=== PATIENT | male | born 1970 | race Caucasian/White ===

== ENCOUNTER 2017-01-11 19:46 | Inpatient (IN) ==
[2017-01-11 20:34] LABS: Basophils % 0.2 %; Eosinophils % 0.2 %; Hematocrit 47.6 % (37.5-50.1); Hemoglobin 15.8 g/dL (12.9-16.9); Immature Granulocytes % 0.2 % (0-4); Lymphocytes # 5.6 K/mcL (0.6-4.6); Lymphocytes % 34.8 %; Mean Corpuscular HGB Conc 33.2 g/dL (31.6-35.5); Mean Corpuscular Hemoglobin 29.2 pg (28.0-33.3); Mean Platelet Volume 11.1 fL (9.4-12.4); Monocytes # 1.4 K/mcL (0.0-1.3); Monocytes % 8.6 %; Platelet Count 223 K/mcL (140-400); Red Blood Count 5.41 M/mcL (4.19-5.50); Red Cell Distribution Width 13.2 % (11.5-14.5)
[2017-01-11 20:48] LABS: Alanine Aminotransferase 34 Units/L (0-55); Albumin/Globulin Ratio 1.2 (1.1-2.2); Alkaline Phosphatase 81 Units/L (38-126); Aspartate Amino Transferase 31 Units/L (5-34); BUN/Creatinine Ratio 18 (6-26); Bilirubin,Direct 0.3 mg/dL (0.0-0.5); Bilirubin,Indirect 0.5 mg/dL (0.0-1.2); Bilirubin,Total 0.8 mg/dL (0.2-1.2); Blood Urea Nitrogen 21 mg/dL (8-26); Calcium 9.4 mg/dL (8.6-10.8); Carbon Dioxide 29 mEq/L (19-29); Chloride 99 mEq/L (98-109); Globulin 3.4 g/dL (2.4-3.5); Glucose 75 mg/dL (70-99); Osmolality,Calculated 290 (280-300); Potassium 4.3 mEq/L (3.5-4.5); Sodium 139 mEq/L (136-145); Total Protein 7.4 g/dL (6.0-8.3); eGFR For African Americans > 60 (> 60); eGFR For Non-African Americans > 60 (> 60)
--- NOTE | 2017-01-11 20:50 | Emergency Department Note ---
Disposition Clinical Impression: Suicidal ideation, Chronic schizophrenia Disposition: Still a Patient Condition: Fair Referrals: NO,PCP [Primary Care Provider] - Forms: ED Satisfaction Letter Time of Disposition: 22:01 Psych HPI - General Chief Complaint: ED Psychiatric Symptoms Stated Complaint: psych Time Seen by Provider: 01/11/17 19:50 Source: patient, EMS Mode of arrival: ambulatory Limitations: no limitations Nursing Notes Reviewed: Yes Vital Signs Reviewed: Yes - History of Present Illness HPI Narrative: Patient presents emergency room by EMS for evaluation of schizophrenia with manic episode. Patient is concerned about a metallic object being placed into his chest that is a radio transmitter controlling his pain and giving out information to other people. No other issues prior to coming according to the patient Pt complaint: suicidal ideation Onset (ago): day(s) Duration: constant History of similar episodes: Yes Improves with: none Worsens with: none Associated symptoms: Reports: denies other symptoms Traumatic symptoms: denies traumatic injury Self harm or harm to others: admits thoughts of self harm, self-inflicted trauma (Patient says that he cut his right hand it is unknown whether this is traumatic or self-induced) - Related Data Allergies Allergy/AdvReac Type Severity Reaction Status Date / Time No Known Allergies Allergy Verified 01/11/17 20:31 All systems ED: reviewed and negative except as stated. Psychiatric: Reports: depression, suicidal thoughts, auditory hallucinations, visual hallucinations Past Medical History - Past Medical History Attestation: Yes The following information was validated with the patient. Source: patient Medical history: Reports: no medical history Psychiatric history: Reports: anxiety, depression, schizophrenia - Social History Smoking Status: Current every day smoker Smokeless Tobacco Status: No Alcohol use: Reports: none Drug use: Reports: opiates Physical Exam - General Limitations: no limitations General appearance: alert, in no apparent distress - Chest Chest inspection: Present: normal inspection, symmetric chest wall rise - Respiratory Respiratory exam: Present: normal lung sounds bilaterally - Cardiovascular Cardiovascular exam: Present: regular rate, normal rhythm, normal heart sounds - Extremities Exam Extremities exam: Present: normal inspection, full ROM - Neurological Exam Neurological exam: Present: alert, oriented X3 - Psychiatric Psychiatric exam: Present: anxious, manic, suicidal ideation Course Course Narrative: Patient seen and examined the time of arrival. See history of present illness. 46-year-old male brought in by EMS for an acute manic episode. Patient says that people are trying to track him with a metal device placed. Patient denies any other trauma or injuries. Has not been on medications. Is a possibility of a self-inflicted injury to the right inky finger. He would not disclose whether or not he actually cut that his hand or cut it himself. Otherwise patient has no other acute medical issues. Medical clearance to be completed. Patient is compliant this time. Chest x-ray is stable showing no acute metallic body at this time. Discussed this with the patient is comfortable with this point. Medical clearance and psychiatric evaluation be completed this time. No other acute medical findings on evaluation - Reevaluation(s) Reevaluation #1: Patient medically cleared at this time. He has not been any issues in the emergency room. Patient will be evaluated by the psychiatric team here. They were contacted at 2200 hrs. No other acute issues at this point. They said it could be an hour or 2 before the patient is evaluated here in the emergency room. Patient be signed out to the nighttime physicians Dr. Aden and Dr. Steve. Detailed review the patient's presentations medical issues will be reviewed. Patient is otherwise in no distress and causing no issues at this time. Time: 22:01 Vital Signs Temperature 98.4 F 01/11/17 19:50 Pulse Rate 86 01/11/17 19:50 Respiratory Rate 18 01/11/17 19:50 Blood Pressure 136/87 01/11/17 19:50 O2 Sat by Pulse Oximetry 97 01/11/17 19:50 Temperature 98.4 F 01/11/17 19:50 Pulse Rate 86 01/11/17 19:50 Respiratory Rate 18 01/11/17 19:50 Blood Pressure 136/87 01/11/17 19:50 O2 Sat by Pulse Oximetry 97 01/11/17 19:50 Oxygen Delivery Oxygen Delivery Room Air Psych - MDM Narrative Medical decision making narrative: Acute manic episode, schizophrenia - Lab Data Lab results reviewed: Yes I reviewed the patient's lab results. Result diagrams: 01/11/17 20:29 01/11/17 20:29 Lab Results 01/11/17 01/11/17 01/11/17 Range/Units 20:29 20:29 21:06 WBC 16.0 H (4.3-11.1) K/mcL RBC 5.41 (4.19-5.50) M/mcL Hgb 15.8 (12.9-16.9) g/dL Hct 47.6 (37.5-50.1) % MCV 88.0 (83.0-100.0) fL MCH 29.2 (28.0-33.3) pg MCHC 33.2 (31.6-35.5) g/dL RDW 13.2 (11.5-14.5) % Plt Count 223 (140-400) K/mcL MPV 11.1 (9.4-12.4) fL Immature Gran % 0.2 (0-4) % Seg Neutrophils % 56.0 % Lymphocytes % 34.8 % Monocytes % 8.6 % Eosinophils % 0.2 % Basophils % 0.2 % Neutrophils # 9.0 H (1.6-8.9) K/mcL Lymphocytes # 5.6 H (0.6-4.6) K/mcL Monocytes # 1.4 H (0.0-1.3) K/mcL Eosinophils # 0.0 (0.0-0.6) K/mcL Basophils # 0.0 (0.0-0.2) K/mcL Sodium 139 (136-145) mEq/L Potassium 4.3 (3.5-4.5) mEq/L Chloride 99 (98-109) mEq/L Carbon Dioxide 29 (19-29) mEq/L BUN 21 (8-26) mg/dL Creatinine 1.18 (0.72-1.25) mg/dL Est GFR ( Amer) > 60 (> 60) Est GFR (Non-Af Amer) > 60 (> 60) BUN/Creatinine Ratio 18 (6-26) Glucose 75 (70-99) mg/dL Calculated Osmolality 290 (280-300) Calcium 9.4 (8.6-10.8) mg/dL Total Bilirubin 0.8 (0.2-1.2) mg/dL Direct Bilirubin 0.3 (0.0-0.5) mg/dL Indirect Bilirubin 0.5 (0.0-1.2) mg/dL AST 31 (5-34) Units/L ALT 34 (0-55) Units/L Alkaline Phosphatase 81 (38-126) Units/L Serum Total Protein 7.4 (6.0-8.3) g/dL Albumin 4.0 (3.5-5.0) g/dL Globulin 3.4 (2.4-3.5) g/dL Albumin/Globulin Ratio 1.2 (1.1-2.2) Urine Color Yellow (Yellow) Urine Clarity Clear (Clear) Urine pH 6.0 (5.0-8.0) pH Units Ur Specific [place] 1.014 (1.010-1.025) Urine Protein Negative (Neg-Trace) mg/dL Urine Glucose (UA) Normal (Normal) mg/dL Urine Ketones Negative (Negative) mg/dL Urine Blood Negative (Negative) Urine Nitrite Negative (Negative) Urine Bilirubin Negative (Negative) Urine Urobilinogen Normal (Normal) mg/dL Ur Leukocyte Esterase Negative (Negative) Urine Opiates Screen (Wesrzw=152) ng/mL Ur Barbiturates Screen (Kqtigg=106) ng/mL Ur Phencyclidine Scrn (Cutoff=25) ng/mL Ur Amphetamines Screen (Hznzqn=3787) ng/mL U Benzodiazepines Scrn (Lhymzl=638) ng/mL Urine Cocaine Screen (Cutoff= 300) ng/mL U Marijuana (THC) Screen (Cutoff = 50) ng/mL 01/11/17 Range/Units 21:06 WBC (4.3-11.1) K/mcL RBC (4.19-5.50) M/mcL Hgb (12.9-16.9) g/dL Hct (37.5-50.1) % MCV (83.0-100.0) fL MCH (28.0-33.3) pg MCHC (31.6-35.5) g/dL RDW (11.5-14.5) % Plt Count (140-400) K/mcL MPV (9.4-12.4) fL Immature Gran % (0-4) % Seg Neutrophils % % Lymphocytes % % Monocytes % % Eosinophils % % Basophils % % Neutrophils # (1.6-8.9) K/mcL Lymphocytes # (0.6-4.6) K/mcL Monocytes # (0.0-1.3) K/mcL Eosinophils # (0.0-0.6) K/mcL Basophils # (0.0-0.2) K/mcL Sodium (136-145) mEq/L Potassium (3.5-4.5) mEq/L Chloride (98-109) mEq/L Carbon Dioxide (19-29) mEq/L BUN (8-26) mg/dL Creatinine (0.72-1.25) mg/dL Est GFR ( Amer) (> 60) Est GFR (Non-Af Amer) (> 60) BUN/Creatinine Ratio (6-26) Glucose (70-99) mg/dL Calculated Osmolality (280-300) Calcium (8.6-10.8) mg/dL Total Bilirubin (0.2-1.2) mg/dL Direct Bilirubin (0.0-0.5) mg/dL Indirect Bilirubin (0.0-1.2) mg/dL AST (5-34) Units/L ALT (0-55) Units/L Alkaline Phosphatase (38-126) Units/L Serum Total Protein (6.0-8.3) g/dL Albumin (3.5-5.0) g/dL Globulin (2.4-3.5) g/dL Albumin/Globulin Ratio (1.1-2.2) Urine Color (Yellow) Urine Clarity (Clear) Urine pH (5.0-8.0) pH Units Ur Specific [place] (1.010-1.025) Urine Protein (Neg-Trace) mg/dL Urine Glucose (UA) (Normal) mg/dL Urine Ketones (Negative) mg/dL Urine Blood (Negative) Urine Nitrite (Negative) Urine Bilirubin (Negative) Urine Urobilinogen (Normal) mg/dL Ur Leukocyte Esterase (Negative) Urine Opiates Screen Negative (Bnwxwo=584) ng/mL Ur Barbiturates Screen Negative (Awlujz=885) ng/mL Ur Phencyclidine Scrn Negative (Cutoff=25) ng/mL Ur Amphetamines Screen Positive H (Lcknya=6664) ng/mL U Benzodiazepines Scrn Positive H (Yftznt=550) ng/mL Urine Cocaine Screen Negative (Cutoff= 300) ng/mL U Marijuana (THC) Screen Negative (Cutoff = 50) ng/mL Psychiatric Medical Clearance - Medical Clearance Checklist Does the patient have a NEW psychiatric condition?: No Any abnormalities indicating possible medical illness?: No Any history of medical issues?: No Medical History: No Social History Section defined Any abnormal vital signs prior to transfer?: No Current Vitals: Last Vital Signs Temp 98.4 F 01/11/17 19:50 Pulse 86 01/11/17 19:50 Resp 18 04/08/17 19:50 BP 136/87 01/11/17 19:50 Pulse Ox 97 01/11/17 19:50 Is the patient intoxicated or cognitively impaired?: No Psychiatric Lab Panel: Drug Levels and Toxicity 01/11/17 21:06 Urine Opiates Screen Negative Ur Barbiturates Screen Negative Ur Phencyclidine Scrn Negative Ur Amphetamines Screen Positive H U Benzodiazepines Scrn Positive H Urine Cocaine Screen Negative U Marijuana (THC) Screen Negative Any abnormalities on the physical exam?: No Any abnormal labs?: No Abnormal Labs: Abnormal lab results WBC 16.0 K/mcL (4.3-11.1) H 01/11/17 20:29 Neutrophils # 9.0 K/mcL (1.6-8.9) H 01/11/17 20:29 Lymphocytes # 5.6 K/mcL (0.6-4.6) H 01/11/17 20:29 Monocytes # 1.4 K/mcL (0.0-1.3) H 01/11/17 20:29 Ur Amphetamines Screen Positive ng/mL (Aadjxe=2899) H 01/11/17 21:06 U Benzodiazepines Scrn Positive ng/mL (Gmkzyb=963) H 01/11/17 21:06 Does the patient require durable medical equiptment?: No Is the patient ambulatory?: Yes Is the patient a fall risk?: No Has the patient been medically cleared?: Yes Any acute medical condition require Tx prior to transfer?: No Statement of Medical Clearance: I have evaluated the patient, reviewed diagnostic information, and certify that the patient's medical condition is sufficiently stable that transfer to the psychiatric unit does not pose a significant risk of deterioration. Attestation Statement - Attestation Attestation: I examined this patient and my medical decision-making was reviewed with the [employer]ER/PA/Advanced Practice Nurse/Resident Physician. I agree with the documented findings, disposition and treatment plan as described except to the extent set forth below. Patient presents to the emergency department with a chief complaint of paranoia. Patient went in to the police station [facility] requesting help. Patient insisted several years ago his had a device implanted in his abdomen during his cholecystectomy. He states he is a low fluid frequency transmitter. States he thinks she is spying on him. Thinks that she needs communicate with us transmitter. Quintana he is in no acute distress with clear lungs and heart regular rate and rhythm. Plan. Patient with auditory hallucinations. Medical clearance and psych eval.
[2017-01-11 21:17] LABS: Bilirubin,Urine Negative (Negative); Blood,Urine Negative (Negative); Clarity,Urine Clear (Clear); Color,Urine Yellow (Yellow); Glucose,Urine (UA) Normal (Normal); Ketones,Urine Negative (Negative); Leukocyte Esterase,Urine Negative (Negative); Nitrite,Urine Negative (Negative); Protein,Urine Negative (Neg-Trace); Specific Gravity,Urine 1.014 (1.010-1.025); Urobilinogen,Urine Normal (Normal)
[2017-01-11 21:23] LABS: Amphetamine Screen,Urine Positive ng/mL (Cutoff=1000); Barbiturate Screen,Urine Negative ng/mL (Cutoff=200); Benzodiazepines Screen,Urine Positive ng/mL (Cutoff=200); Cannabinoid Screen,Urine Negative ng/mL (Cutoff = 50); Cocaine Screen,Urine Negative ng/mL (Cutoff= 300); Opiate Screen,Urine Negative ng/mL (Cutoff=300); Phencyclidine Screen,Urine Negative ng/mL (Cutoff=25)
[2017-01-11 23:05] LABS: Acetaminophen < 1.0 mcg/mL (10-30); Ethanol < 10 mg/dL (0-10); Salicylate < 5.0 mg/dL (15-30)
[2017-01-12] MEDS ORDERED: traZODone 50 MG TABLET PO PRN (00:41)
[2017-01-12] MEDS ORDERED: Acetaminophen 325 MG TABLET PO PRN (00:41)
[2017-01-12] MEDS ORDERED: Haloperidol Lactate 5 MG/ML VIAL IM PRN (00:41)
[2017-01-12] MEDS ORDERED: Mag Hydrox/Al Hydrox/Simeth 30 ML UDC PO PRN (00:41)
[2017-01-12] MEDS ORDERED: MOM Conc 10 ML UD.LIQ PO PRN (00:41)
[2017-01-12] MEDS ORDERED: *HR* LORazepam 2 MG/ML VIAL IM PRN (00:41)
[2017-01-12] MEDS ORDERED: hydrOXYzine pamoate 25 MG CAPSULE PO PRN (00:41)
[2017-01-12] MEDS ORDERED: *HR* LORazepam 1 MG TABLET PO PRN (00:41)
[2017-01-12] MEDS: Ibuprofen 400 MG TABLET PO PRN (01:29)
[2017-01-12] MEDS: Nicotine 21 MG PATCH.TD24 TD SCH (08:39)
--- NOTE | 2017-01-12 10:25 | Psychiatry History & Physical ---
Date of Encounter: 01/12/17 Time of Encounter: 10:30 History of Present Illness Patient Stated Chief Complaint: Paranoid delusions Medicare Admission Attestation: For traditional Medicare patients the provided hospital inpatient services are reasonable and necessary and in the case of services not specified as inpatient -only under 42 CFR 419.22 (n), that they are appropriately provided as inpatient services in accordance 42 CFR 412.3. For Critical Access Hospital the patient may reasonably be expected to be discharged or transferred to a hospital within 96 hours after admission to the Critical Access Hospital. Admitted From: Emergency Dept History of Present Illness: Mr. St is a 46 year old male admitted from the emergency room for evaluation of paranoid delusions and manic episode. Patient was brought in by police to evaluate his mental status, apparently the patient went to the police station and reported that he is being tracked through a device placed in his abdomen and people are able to track him down. Patient believes that this device was placed when he had his global gallbladder surgery in 2002. Patient has no previous psychiatric treatment records or evaluations in our system and is not taking any medication prior to admission. Patient is homeless because his girlfriend kicked him out. 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 Tox screen in the ER was positive for amphetamine and benzodiazepine. Past Med Surg Social Fam HX - Past Medical History Medical history: hyperlipidemia, hypertension - Past Psychiatric History Psychiatric history: Reports: no psych history Family psychiatric history: Unknown Family History of Suicide: Unknown - Past Surgical History Surgical History: appendectomy, cholecystectomy, sinus surgery - Social History Smoking Status: Current every day smoker Smokeless Tobacco Status: No Alcohol use: none Drug use: opiates, other Medications & Allergies Allergies No Known Allergies Allergy (Verified 01/11/17 20:31) Review of Systems Psychiatric: Reports: other (Paranoid delusions) Mental Status Exam Patient orientation: Yes Person, Yes Time, Yes Place Level of alertness: Alert Patient appearance: Appropriate, Unkempt, Disheveled, Obese Behavior: calm, cooperative, guarded, suspicious Psychomotor activity: Normal Eye contact: Minimal Contact Mood description: Anxious, Labile Affect description: constricted, anxious Speech pattern: Normal rate, Normal rhythm, Normal tone, Disorganized Speech volume: Normal Thought process: Loose Associations, Tangential, Flight of Ideas, Disorganized Thought content: No Suicidal ideation, No Homicidal ideation, Yes Overt delusions, Yes Ideas of reference, Yes Preoccupation, Yes Paranoid delusion, Yes Somatic delusion, Yes Obsessive thoughts Perceptual disturbances: No Auditory hallucinations, No Visual hallucinations Attention span: Capable of Focused Attention Memory description: Grossly Intact Patient reliability: Questionable Historian Intelligence estimate: Average Judgment: Limited Insight: Partial Results - Vital Signs Vital signs: Temp Pulse Resp BP Pulse Ox 98.7 F 79 18 108/74 97 01/12/17 08:52 01/12/17 08:52 01/12/17 08:52 01/12/17 08:52 01/11/17 19:50 - Labs Labs: Laboratory Last Values WBC 16.0 K/mcL (4.3-11.1) H 01/11/17 20:29 RBC 5.41 M/mcL (4.19-5.50) 01/11/17 20:29 Hgb 15.8 g/dL (12.9-16.9) 01/11/17 20:29 Hct 47.6 % (37.5-50.1) 01/11/17 20:29 MCV 88.0 fL (83.0-100.0) 01/11/17 20:29 MCH 29.2 pg (28.0-33.3) 01/11/17 20: MCHC 33.2 g/dL (31.6-35.5) 01/11/17 20:29 RDW 13.2 % (11.5-14.5) 01/11/17 20:29 Plt Count 223 K/mcL (140-400) 01/11/17 20:29 MPV 11.1 fL (9.4-12.4) 01/11/17 20:29 Immature Gran % 0.2 % (0-4) 01/11/17 20:29 Seg Neutrophils % 56.0 % 01/11/17 20:29 Lymphocytes % 34.8 % 01/11/17 20:29 Monocytes % 8.6 % 01/11/17 20:29 Eosinophils % 0.2 % 01/11/17 20: Basophils % 0.2 % 01/11/17 20:29 Neutrophils # 9.0 K/mcL (1.6-8.9) H 01/11/17 20:29 Lymphocytes # 5.6 K/mcL (0.6-4.6) H 01/11/17 20:29 Monocytes # 1.4 K/mcL (0.0-1.3) H 01/11/17 20:29 Eosinophils # 0.0 K/mcL (0.0-0.6) 01/11/17 20:29 Basophils # 0.0 K/mcL (0.0-0.2) 01/11/17 20:29 Sodium 139 mEq/L (136-145) 01/11/17 20:29 Potassium 4.3 mEq/L (3.5-4.5) 01/11/17 20:29 Chloride 99 mEq/L (98-109) 01/11/17 20:29 Carbon Dioxide 29 mEq/L (19-29) 01/11/17 20:29 BUN 21 mg/dL (8-26) 01/11/17 20: Creatinine 1.18 mg/dL (0.72-1.25) 01/11/17 20:29 Est GFR ( Amer) > 60 (> 60) 01/11/17 20:29 Est GFR (Non-Af Amer) > 60 (> 60) 01/11/17 20:29 BUN/Creatinine Ratio 18 (6-26) 01/11/17 20:29 Glucose 75 mg/dL (70-99) 01/11/17 20:29 Calculated Osmolality 290 (280-300) 01/11/17 20:29 Calcium 9.4 mg/dL (8.6-10.8) 01/11/17 20:29 Total Bilirubin 0.8 mg/dL (0.2-1.2) 01/11/17 20:29 Direct Bilirubin 0.3 mg/dL (0.0-0.5) 01/11/17 20:29 Indirect Bilirubin 0.5 mg/dL (0.0-1.2) 01/11/17 20:29 AST 31 Units/L (5-34) 01/11/17 20: ALT 34 Units/L (0-55) 01/11/17 20:29 Alkaline Phosphatase 81 Units/L (38-126) 01/11/17 20:29 Serum Total Protein 7.4 g/dL (6.0-8.3) 01/11/17 20:29 Albumin 4.0 g/dL (3.5-5.0) 01/11/17 20:29 Globulin 3.4 g/dL (2.4-3.5) 01/11/17 20:29 Albumin/Globulin Ratio 1.2 (1.1-2.2) 01/11/17 20:29 Urine Color Yellow (Yellow) 01/11/17 21:06 Urine Clarity Clear (Clear) 01/11/17 21:06 Urine pH 6.0 pH Units (5.0-8.0) 01/11/17 21:06 Ur Specific [place] 1.014 (1.010-1.025) 01/11/17 21:06 Urine Protein Negative mg/dL (Neg-Trace) 01/11/17 21:06 Urine Glucose (UA) Normal mg/dL (Normal) 01/11/17 21:06 Urine Ketones Negative mg/dL (Negative) 01/11/17 21:06 Urine Blood Negative (Negative) 01/11/17 21:06 Urine Nitrite Negative (Negative) 01/11/17 21:06 Urine Bilirubin Negative (Negative) 01/11/17 21:06 Urine Urobilinogen Normal mg/dL (Normal) 01/11/17 21:06 Ur Leukocyte Esterase Negative (Negative) 01/11/17 21:06 Salicylates < 5.0 mg/dL (15-30) L 01/11/17 20:29 Urine Opiates Screen Negative ng/mL (Ekedkf=122) 01/11/17 21:06 Acetaminophen < 1.0 mcg/mL (10-30) L 01/11/17 20:29 Ur Barbiturates Screen Negative ng/mL (Pdeebo=118) 01/11/17 21:06 Ur Phencyclidine Scrn Negative ng/mL (Cutoff=25) 01/11/17 21:06 Ur Amphetamines Screen Positive ng/mL (Linthq=9981) H 01/11/17 21:06 U Benzodiazepines Scrn Positive ng/mL (Agtquy=412) H 01/11/17 21:06 Urine Cocaine Screen Negative ng/mL (Cutoff= 300) 01/11/17 21:06 U Marijuana (THC) Screen Negative ng/mL (Cutoff = 50) 01/11/17 21:06 Ethyl Alcohol < 10 mg/dL (0-10) 01/11/17 20:29 Assessment and Plan (1) Substance-induced psychotic disorder with delusions Current visit: Yes Status: Acute Plan: Admit inpatient for safety and stabilization, Close observation, Suicide Precautions per unit protocol, Encourage participation in unit milieu, Group Therapy, Monitor sleep, Monitor appetite Additional Plan: The Zyprexa 10 mg twice a day. Benefits and side effects were discussed patient is agreeable to start treatment will monitor Risks, benefits, side effects, alternatives discussed w/pt: Yes Patient agreeable to treatment: Yes
[2017-01-12] MEDS: OLANZapine 10 MG TAB.RAPDIS PO SCH ×2 (11:24→20:54)
[2017-01-13] MEDS: OLANZapine 10 MG TAB.RAPDIS PO SCH ×2 (09:18→21:51)
[2017-01-13] MEDS: Nicotine 21 MG PATCH.TD24 TD SCH (09:18)
--- NOTE | 2017-01-13 19:19 | Psychiatry Progress Note ---
Date of Encounter: 01/13/17 Time of Encounter: 19:15 Subjective Interval history: Pt reports he believes that everybody was after him. Does not know if the Andra Alerts are still being sent to him because he has not gone outside the hospital. He denies s/e to Zyprexa. Started sleeping better with meds. Feeling a bit calmer. Review of Systems Psychiatric: Reports: other (Paranoid delusions) Objective: Exam Patient orientation: Yes Person, Yes Time, Yes Place Level of alertness: Alert Patient appearance: Appropriate, Unkempt, Disheveled, Obese Behavior: calm, cooperative, guarded, suspicious Psychomotor activity: Normal Eye contact: Minimal Contact Mood description: Euthymic/stable Affect description: constricted, anxious Speech pattern: Normal rate, Normal rhythm, Normal tone, Disorganized Speech volume: Normal Thought process: Loose Associations, Tangential, Flight of Ideas, Disorganized Thought content: No Suicidal ideation, No Homicidal ideation, Yes Overt delusions, Yes Ideas of reference, Yes Preoccupation, Yes Paranoid delusion, Yes Somatic delusion, Yes Obsessive thoughts Perceptual disturbances: No Auditory hallucinations, No Visual hallucinations Judgment: Limited Insight: Partial Results - Vital Signs Vital Signs: Temp Pulse Resp BP Pulse Ox 98.2 F 96 16 123/85 97 01/13/17 09:00 01/13/17 09:00 01/13/17 09:00 01/13/17 09:00 01/11/17 19:50 Assessment and Plan (1) Chronic schizophrenia Current visit: Yes Status: Acute Plan: Continue hospitalization, Close observation, Encourage participation in unit milieu, Group Therapy, Monitor sleep, Monitor appetite, Secure weapons, Family/Supportive other meeting Consult Discharge Plan - Plan Additional Instructions: Will continue to monitor for softening of delusions. Referrals: NO,PCP [Primary Care Provider] -
[2017-01-13] MEDS: Neosporin OINT 15 GM TUBE TP SCH (21:51)
[2017-01-13] MEDS: Ibuprofen 400 MG TABLET PO PRN (21:52)
[2017-01-14] MEDS: Nicotine 21 MG PATCH.TD24 TD SCH (08:32)
[2017-01-14] MEDS: OLANZapine 10 MG TAB.RAPDIS PO SCH ×2 (08:33→21:26)
[2017-01-14] MEDS: Neosporin OINT 15 GM TUBE TP SCH ×4 (08:51→21:26)
--- NOTE | 2017-01-14 17:31 | Psychiatry Progress Note ---
Date of Encounter: 01/14/17 Time of Encounter: 17:20 Subjective Interval history: Pt reports he was able t sleep last night. Still thinking his cell phone is sending him frequent alarms Worried that everyone knows his location through the phone. Attending groups . Review of Systems Psychiatric: Reports: anxiety, other (Paranoid delusions) Objective: Exam Patient orientation: Yes Person, Yes Time, Yes Place Level of alertness: Alert Patient appearance: Appropriate, Unkempt, Disheveled, Obese Behavior: calm, cooperative, guarded, suspicious Psychomotor activity: Normal Eye contact: Minimal Contact Mood description: Euthymic/stable Affect description: constricted, anxious Speech pattern: Normal rate, Normal rhythm, Normal tone, Disorganized Speech volume: Normal Thought process: Loose Associations, Tangential, Flight of Ideas, Disorganized Thought content: No Suicidal ideation, No Homicidal ideation, Yes Overt delusions, Yes Ideas of reference, Yes Preoccupation, Yes Paranoid delusion, Yes Somatic delusion, Yes Obsessive thoughts Perceptual disturbances: No Auditory hallucinations, No Visual hallucinations Judgment: Limited Insight: Partial Results - Vital Signs Vital Signs: Temp Pulse Resp BP Pulse Ox 97.7 F 61 16 122/77 97 01/14/17 08:34 01/14/17 08:34 01/14/17 08:34 01/14/17 08:34 01/11/17 19:50 Assessment and Plan (1) Chronic schizophrenia Current visit: Yes Status: Acute Plan: Continue hospitalization, Close observation, Encourage participation in unit milieu, Group Therapy, Monitor sleep, Monitor appetite, Secure weapons, Family/Supportive other meeting Risks, benefits, side effects, alternatives discussed w/pt: Yes (Cont Zyprexa) Patient agreeable to treatment: Yes Consult Discharge Plan - Plan Additional Instructions: Will continue to monitor for softening of delusions. Referrals: NO,PCP [Primary Care Provider] -
[2017-01-14] MEDS: Ibuprofen 400 MG TABLET PO PRN (21:26)
[2017-01-15] MEDS: Nicotine 21 MG PATCH.TD24 TD SCH (08:26)
[2017-01-15] MEDS: Neosporin OINT 15 GM TUBE TP SCH ×4 (08:27→20:05)
[2017-01-15] MEDS: OLANZapine 10 MG TAB.RAPDIS PO SCH ×2 (08:27→20:05)
--- NOTE | 2017-01-15 13:07 | Psychiatry Progress Note ---
Date of Encounter: 01/15/17 Time of Encounter: 13:05 Subjective Interval history: Pt reports he is ready to get out of here. He slept OK and seems less preoccupied with the delusions about something planted in him receiving frequent corinna alerts. He is now thinking it may have been his cell phone instead. He has no understanding that it was all his unwarranted imagination. Denies s/e from meds. Review of Systems Psychiatric: Reports: anxiety, other (Paranoid delusions beginning to sofen. Very poor insight.) Objective: Exam Patient orientation: Yes Person, Yes Time, Yes Place, Yes Circumstance Level of alertness: Alert Patient appearance: Appropriate, Unkempt, Disheveled, Obese Behavior: calm, cooperative, guarded, suspicious Psychomotor activity: Normal Eye contact: Minimal Contact Mood description: Euthymic/stable Affect description: constricted, anxious Speech pattern: Normal rate, Normal rhythm, Normal tone, Disorganized Speech volume: Normal Thought process: Loose Associations, Tangential, Flight of Ideas, Disorganized Thought content: No Suicidal ideation, No Homicidal ideation, Yes Overt delusions, Yes Ideas of reference, Yes Preoccupation, Yes Paranoid delusion, Yes Somatic delusion, Yes Obsessive thoughts Perceptual disturbances: No Auditory hallucinations, No Visual hallucinations Judgment: Limited Insight: Partial Results - Vital Signs Vital Signs: Temp Pulse Resp BP Pulse Ox 97.9 F 73 16 134/83 97 01/15/17 08:21 01/15/17 08:21 01/15/17 08:21 01/15/17 08:21 01/11/17 19:50 Assessment and Plan (1) Chronic schizophrenia Current visit: Yes Status: Acute Plan: Continue hospitalization, Close observation, Encourage participation in unit milieu, Group Therapy, Monitor sleep, Monitor appetite, Secure weapons, Family/Supportive other meeting Risks, benefits, side effects, alternatives discussed w/pt: Yes (Cont Zyprexa) Patient agreeable to treatment: Yes Consult Discharge Plan - Plan Referrals: [facility] [Outside] - 03/13/17 9:00 am (The above appointment Dr. Lauren Trent. This appointment is to establish you with a primary care provider. Please arrive 10-15 minutes early to complete the check-in process. You will receive a new patient packet in the mail. Please complete that packet and bring it with you to this appointment. If you are unable to complete your new patient packet, please arrive 30 minutes early to your first appointment to complete this packet in the office. Please also bring your insurance card or HCAP award letter, photo ID, and all medications in their original bottles to this appointment. If you are unable to keep this appointment, 24 hour business notice of cancellation is expected. If you miss your new patient appointment, you cannot be re-scheduled in this practice. ) [facility] [Outside] - 03/28/17 9:00 am (The above appointment is with Lauren Mendoza, psychiatric prescriber. Please arrive 15 minutes early to complete paperwork. Please bring your insurance card, photo ID and medications in their original bottles. If you do not have insurance, bring proof of income to apply for the sliding fee scale. If you are unable to keep this appointment, 24 hour business notice of cancellation is expected. )
[2017-01-16] MEDS: Nicotine 21 MG PATCH.TD24 TD SCH (08:25)
[2017-01-16] MEDS: OLANZapine 10 MG TAB.RAPDIS PO SCH ×2 (08:25→20:33)
[2017-01-16] MEDS: Neosporin OINT 15 GM TUBE TP SCH ×4 (08:26→20:33)
[2017-01-16 09:06] LABS: Alanine Aminotransferase 46 Units/L (0-55); Albumin 3.5 g/dL (3.5-5.0); Albumin/Globulin Ratio 1.1 (1.1-2.2); Alkaline Phosphatase 68 Units/L (38-126); Aspartate Amino Transferase 22 Units/L (5-34); BUN/Creatinine Ratio 15 (6-26); Bilirubin,Total 0.4 mg/dL (0.2-1.2); Blood Urea Nitrogen 13 mg/dL (8-26); Calcium 9.7 mg/dL (8.6-10.8); Carbon Dioxide 22 mEq/L (19-29); Chloride 105 mEq/L (98-109); Globulin 3.3 g/dL (2.4-3.5); Glucose 169 mg/dL (70-99); Osmolality,Calculated 294 (280-300); Potassium 4.5 mEq/L (3.5-4.5); Sodium 140 mEq/L (136-145); Total Protein 6.8 g/dL (6.0-8.3); eGFR For African Americans > 60 (> 60); eGFR For Non-African Americans > 60 (> 60)
--- NOTE | 2017-01-16 16:02 | Psychiatry Progress Note ---
Date of Encounter: 01/16/17 Time of Encounter: 16:00 Subjective Interval history: Pt reports fair sleep last night. He is eager to leave and reports no voices or paranoia. His paranoid delusions still persist but softened at this time. He is certainly not as preoccupied with the delusions as before. Review of Systems Psychiatric: Reports: anxiety, other (Paranoid delusions beginning to sofen. Very poor insight.) Objective: Exam Patient orientation: Yes Person, Yes Time, Yes Place, Yes Circumstance Level of alertness: Alert Patient appearance: Appropriate, Unkempt, Disheveled, Obese Behavior: calm, cooperative, guarded, suspicious Psychomotor activity: Normal Eye contact: Minimal Contact Mood description: Euthymic/stable Affect description: constricted, anxious Speech pattern: Normal rate, Normal rhythm, Normal tone, Disorganized Speech volume: Normal Thought process: Loose Associations, Tangential, Flight of Ideas, Disorganized Thought content: No Suicidal ideation, No Homicidal ideation, Yes Overt delusions, Yes Ideas of reference, Yes Preoccupation, Yes Paranoid delusion, Yes Somatic delusion, Yes Obsessive thoughts Perceptual disturbances: No Auditory hallucinations, No Visual hallucinations Judgment: Limited Insight: Partial Results - Vital Signs Vital Signs: Temp Pulse Resp BP Pulse Ox 98 F 66 16 111/71 97 01/16/17 09:00 01/16/17 09:00 01/16/17 09:00 01/16/17 09:00 01/11/17 19:50 - Labs Labs: Laboratory Results - last 24 hr 01/16/17 08:30 Sodium 140 Potassium 4.5 Chloride 105 Carbon Dioxide 22 BUN 13 Creatinine 0.87 Est GFR ( Amer) > 60 Est GFR (Non-Af Amer) > 60 BUN/Creatinine Ratio 15 Glucose 169 H Calculated Osmolality 294 Calcium 9.7 Total Bilirubin 0.4 AST 22 ALT 46 Alkaline Phosphatase 68 Serum Total Protein 6.8 Albumin 3.5 Globulin 3.3 Albumin/Globulin Ratio 1.1 Assessment and Plan (1) Chronic schizophrenia Current visit: Yes Status: Acute Plan: Continue hospitalization, Close observation, Encourage participation in unit milieu, Group Therapy, Monitor sleep, Monitor appetite, Secure weapons, Family/Supportive other meeting Risks, benefits, side effects, alternatives discussed w/pt: Yes (Cont Zyprexa) Patient agreeable to treatment: Yes Consult Discharge Plan - Plan Referrals: [facility] [Outside] - 03/13/17 9:00 am (The above appointment Dr. Lauren Trent. This appointment is to establish you with a primary care provider. Please arrive 10-15 minutes early to complete the check-in process. You will receive a new patient packet in the mail. Please complete that packet and bring it with you to this appointment. If you are unable to complete your new patient packet, please arrive 30 minutes early to your first appointment to complete this packet in the office. Please also bring your insurance card or HCAP award letter, photo ID, and all medications in their original bottles to this appointment. If you are unable to keep this appointment, 24 hour business notice of cancellation is expected. If you miss your new patient appointment, you cannot be re-scheduled in this practice. ) [facility] - 03/28/17 9:00 am (The above appointment is with Lauren Mendoza, psychiatric prescriber. Please arrive 15 minutes early to complete paperwork. Please bring your insurance card, photo ID and medications in their original bottles. If you do not have insurance, bring proof of income to apply for the sliding fee scale. If you are unable to keep this appointment, 24 hour business notice of cancellation is expected. ) [facility] [Outside] - 01/28/17 2:00 pm (The above appointment is with Laya Barbosa. When you come to your first appointment, you will have an orientation to the agency and you will meet with a counselor. Please bring the following with you to your first visit to the clinic: 1) proof of household income (two consecutive pay stubs, social security award letter, bank statement, statement letter from [employer], child support statement, IRS 1040 or W2 form, or a statement from the person who financially supports you stating they help provide for your basic needs), 2) proof of residency (drivers license , a piece of mail showing your address, a statement from person you live with verifying you live at their address), 3) your social security card, 4) photo ID , 5) your insurance card (if you have commercial insurance you must call to obtain a prior authorization number before you arrive to your first appointment ) and 6) if you do not have insurance but have applied for Medicaid, please bring verification you have applied.)
[2017-01-17] MEDS: OLANZapine 10 MG TAB.RAPDIS PO SCH (08:44)
[2017-01-17] MEDS: Neosporin OINT 15 GM TUBE TP SCH ×2 (08:44→12:14)
[2017-01-17] MEDS: Nicotine 21 MG PATCH.TD24 TD SCH (08:44)
[2017-01-17 08:56] VITALS: BP 125/72
--- NOTE | 2017-01-17 12:12 | Discharge Summary ---
Date of Encounter: 01/17/17 Time of Encounter: 12:00 Diagnosis - Discharge Diagnosis (1) Chronic schizophrenia Status: Acute Medications - Discharge Medications Prescriptions: Nicotine Patch [Nicoderm] 21 mg TD DAILY #14 patch.td24 OLANZapine [Zyprexa Zydis] 10 mg PO BID #14 tab.rapdis TraZODone 50 mg PO HS PRN #14 tablet PRN Reason: Insomnia Nicotine Patch [Nicoderm] 21 mg TD DAILY #14 patch.td24 01/17/17 [Rx] OLANZapine [Zyprexa Zydis] 10 mg PO BID #14 tab.rapdis 01/17/17 [Rx] TraZODone 50 mg PO HS PRN #14 tablet 01/17/17 [Rx] Allergies No Known Allergies Allergy (Verified 01/11/17 20:31) Results Procedures and tests throughout hospitalization: Completed Lab Orders Category Date Time Status Chem 13 [Comprehensive Metabolic Panel] Routine Lab 01/16/17 08:30 Completed Provider Date of admission: 01/13/17 00:00 Primary care physician: PCP NO Consults: NONE Discharging clinician: Lan Jurado Assessment and Plan - Patient/Caregiver Discharge Instructions Activity: resume usual activities as tolerated Diet: regular diet - Follow up Plan Follow up with: [facility] [Outside] - 03/13/17 9:00 am (The above appointment Dr. Lauren Trent. This appointment is to establish you with a primary care provider. Please arrive 10-15 minutes early to complete the check-in process. You will receive a new patient packet in the mail. Please complete that packet and bring it with you to this appointment. If you are unable to complete your new patient packet, please arrive 30 minutes early to your first appointment to complete this packet in the office. Please also bring your insurance card or HCAP award letter, photo ID, and all medications in their original bottles to this appointment. If you are unable to keep this appointment, 24 hour business notice of cancellation is expected. If you miss your new patient appointment, you cannot be re-scheduled in this practice. ) [facility] [Outside] - 03/28/17 9:00 am (The above appointment is with Lauren Mendoza, psychiatric prescriber. Please arrive 15 minutes early to complete paperwork. Please bring your insurance card, photo ID and medications in their original bottles. If you do not have insurance, bring proof of income to apply for the sliding fee scale. If you are unable to keep this appointment, 24 hour business notice of cancellation is expected. ) [facility] - 01/28/17 2:00 pm (The above appointment is with Laya Barbosa. When you come to your first appointment, you will have an orientation to the agency and you will meet with a counselor. Please bring the following with you to your first visit to the clinic: 1) proof of household income (two consecutive pay stubs, social security award letter, bank statement, statement letter from [facility], child support statement, IRS 1040 or W2 form, or a statement from the person who financially supports you stating they help provide for your basic needs), 2) proof of residency (drivers license , a piece of mail showing your address, a statement from person you live with verifying you live at their address), 3) your social security card, 4) photo ID , 5) your insurance card (if you have commercial insurance you must call to obtain a prior authorization number before you arrive to your first appointment ) and 6) if you do not have insurance but have applied for Medicaid, please bring verification you have applied.) Overall status at discharge: Stable Disposition: Home, Self-Care Hospital Course Hospital course: Mr. St is a 46 year old male with onst of psychosis that predates his drug use. More recently he had been off meds and developed paranoid delusions believing that his ex has implanted a device in him that is frequently bothering him with sending Andra Alerts. He became quite preoccupied with these thoughts and presented to the ER. After admission , assessment was done and it reaffirmed his prior diagnosis of Schizophrenis. He was started on Zyprexa and dose titrated . He slowly began to respond by showing softening of his delusions and not being preoccupied with paranoia. His affect became calmer and he was seen to be more interactive on the unit. Trazodone was also added for sleep with good results. Pt did not show any s/e from either meds. He will [facility] and [facility] for his aftercare. Time spent discussing smoking cessation with patient: 3 to 10 minutes Does patient wish to continue nicotine replacement upon disc: Yes - Time Spent with Patient Total time spent providing and/or coordinating discharge services: Less than 30 minutes Quality - Multiple Antipsychotics Patient discharged on 2 or more antipsychotic medications: No Procedures - Procedures Procedures: Medication Management, Crisis Stabilization, Supportive Therapy, Group Therapy, Psychoeducational Therapy Mental Status Exam - Mental Status Exam Patient orientation: Yes Person, Yes Time, Yes Place, Yes Circumstance Level of alertness: Alert Patient appearance: Appropriate, Well Groomed, Obese Behavior: calm, cooperative, guarded, suspicious Psychomotor activity: Normal Eye contact: Maintains Eye Contact Mood description: Euthymic/stable Affect description: constricted Speech pattern: Normal rate, Normal rhythm, Normal tone Speech Volume: Normal Thought process: Intact Thought Content: Yes Intact, No Suicidal ideation, No Homicidal ideation Perceptual Disturbances: No Auditory hallucinations, No Visual hallucinations Judgment: Fair Insight: Partial
== END 2017-01-17 13:00 | disposition home or self-care (01) | DRG 885 ==
LOC: EMEROO 19:46 → 1ANU 19:46
PROVIDERS: ADMIT Psychiatry & Neurology Psychiatry; ATTEND Psychiatry & Neurology Psychiatry

== ENCOUNTER 2018-02-05 09:32 | Inpatient (IN) ==
--- NOTE | 2018-02-05 09:52 | Emergency Department Note ---
Disposition Clinical Impression: Suicidal ideation Disposition: Admitted As Inpatient Condition: Good Psych HPI - General Chief Complaint: ED Psychiatric Symptoms Stated Complaint: SI Source: patient, family Limitations: no limitations Nursing Notes Reviewed: Yes Vital Signs Reviewed: Yes - History of Present Illness HPI Narrative: 47-year-old male history of depression presents emergency department for suicidal ideation. States this morning he woke up feeling hopeless and wanting to hurt himself. This plan was to establish himself may be in the neck. Denies history of suicidal attempt. He was recently admitted roughly a year ago is time to [facility] a psychiatry for similar symptoms. He denies access to about at home. States he is not currently taking any antidepressants but he has taken Valium to help with sleep. He takes Suboxone for history of drug abuse. He denies any alcohol use or any other drug use. Denies cocaine, heroin, marijuana use. Denies any hallucinations. He says his recent stress included applying for Social Security benefits a his concern that may be he filled it out incorrectly. He states there is either stresses in his life including some family issues. He denies any complaints at this time such as headache, chest pain, shortness of breath, abdominal pain. Pt complaint: suicidal ideation, feels depressed - Related Data Previous Rx's Medication Instructions Recorded Nicotine Patch [Nicoderm] 21 mg TD DAILY #14 patch.td24 01/17/17 OLANZapine [Zyprexa Zydis] 10 mg PO BID #14 tab.rapdis 01/17/17 traZODone [TraZODone] 50 mg PO HS PRN #14 tablet 01/17/17 Allergies Allergy/AdvReac Type Severity Reaction Status Date / Time No Known Allergies Allergy Verified 01/11/17 20:31 All systems ED: reviewed and negative except as stated. Review of Systems: As Per HPI Constitutional: Denies: fever, chills Cardiovascular: Denies: chest pain Respiratory: Denies: cough, dyspnea Gastrointestinal: Denies: abdominal pain Musculoskeletal: Denies: back pain, neck pain Neurological: Denies: headache Past Medical History - Past Medical History Attestation: Yes The following information was validated with the patient. Source: patient Medical history: Reports: hyperlipidemia, hypertension Surgical history: Reports: appendectomy, cholecystectomy, sinus surgery Psychiatric history: Reports: bipolar, schizophrenia - Social History Smoking Status: Current every day smoker Smokeless Tobacco Status: No Alcohol use: Reports: none Drug use: Reports: opiates, prescription drug abuse, other Physical Exam - General Limitations: no limitations General appearance: alert, anxious - Head Head exam: atraumatic, normocephalic, normal inspection - Eye Eye exam: Present: normal appearance, PERRL, EOMI - ENT ENT exam: normal exam, normal oropharynx, mucous membranes moist - Neck Neck exam: Present: normal inspection, full ROM, trachea midline - Chest Chest inspection: Present: normal inspection, symmetric chest wall rise - Respiratory Respiratory exam: Present: normal lung sounds bilaterally - Cardiovascular Cardiovascular exam: Present: regular rate, normal rhythm, normal heart sounds - Abdominal Exam Abdominal exam: Present: soft, Non-Tender. Absent: tenderness, distention, guarding, rebound, rigidity - Extremities Exam Extremities exam: Present: normal inspection, full ROM, normal capillary refill. Absent: tenderness, pedal edema - Skin Skin exam: Present: warm, dry, intact, normal color. Absent: rash, cyanosis, diaphoresis Course Course Narrative: Patient is medically cleared. Positive for benzo. He will be evaluated by [facility] psychiatry - Reevaluation(s) Reevaluation #1: Patient has been evaluated by one a psychiatry and recommend admission. [place] slip has been signed by attending physician Dr. Hodges. Impression is suicidal ideation. Vital Signs Temperature 98.1 F 02/05/18 09:35 Pulse Rate 94 02/05/18 09:35 Respiratory Rate 18 02/05/18 09:35 Blood Pressure 169/95 02/05/18 09:35 O2 Sat by Pulse Oximetry 97 02/05/18 09:35 Temperature 98.8 F 02/05/18 20:36 Pulse Rate 78 02/05/18 20:36 Respiratory Rate 18 02/05/18 20:36 Blood Pressure 124/74 02/05/18 20:36 O2 Sat by Pulse Oximetry 97 02/05/18 09:43 Oxygen Delivery Oxygen Delivery Room Air Psych - MDM Narrative Medical decision making narrative: Patient was discussed with my attending physician who agrees with ED management and final disposition. They independently evaluated the patient. Please refer to their attestation to this encounter for additional information. This note was generated by [employer] voice recognition software and as a result grammatical or spelling errors may occur using this program. - Lab Data Lab results reviewed: Yes I reviewed the patient's lab results. Result diagrams: 02/05/18 09:58 02/05/18 09:58 Lab Results 02/05/18 02/05/18 02/05/18 Range/Units 09:47 09:47 09:58 WBC 11.3 H (4.3-11.1) K/mcL RBC 5.22 (4.19-5.50) M/mcL Hgb 15.4 (12.9-16.9) g/dL Hct 45.6 (37.5-50.1) % MCV 87.4 (83.0-100.0) fL MCH 29.5 (28.0-33.3) pg MCHC 33.8 (31.6-35.5) g/dL RDW 13.4 (11.5-14.5) % Plt Count 244 (140-400) K/mcL MPV 10.8 (9.4-12.4) fL Immature Gran % 0.2 (0-4) % Seg Neutrophils % 74.3 % Lymphocytes % 19.2 % Monocytes % 5.7 % Eosinophils % 0.3 % Basophils % 0.3 % Neutrophils # 8.4 (1.6-8.9) K/mcL Lymphocytes # 2.2 (0.6-4.6) K/mcL Monocytes # 0.7 (0.0-1.3) K/mcL Eosinophils # 0.0 (0.0-0.6) K/mcL Basophils # 0.0 (0.0-0.2) K/mcL Sodium (136-145) mEq/L Potassium (3.5-5.1) mEq/L Chloride (98-107) mEq/L Carbon Dioxide (23-29) mEq/L BUN (6-20) mg/dL Creatinine (0.70-1.30) mg/dL Est GFR ( Amer) (> 60) Est GFR (Non-Af Amer) (> 60) BUN/Creatinine Ratio (6-26) Glucose (70-105) mg/dL Calculated Osmolality (280-300) Calcium (8.6-10.3) mg/dL Urine Color Yellow (Yellow) Urine Clarity Clear (Clear) Urine pH 6.5 (5.0-8.0) pH Units Ur Specific [place] 1.010 (1.010-1.025) Urine Protein Negative (Neg-Trace) mg/dL Urine Glucose (UA) Normal (Normal) mg/dL Urine Ketones Negative (Negative) mg/dL Urine Blood Negative (Negative) Urine Nitrite Negative (Negative) Urine Bilirubin Negative (Negative) Urine Urobilinogen Normal (Normal) mg/dL Ur Leukocyte Esterase Negative (Negative) Salicylates (15.0-30.0) mg/dL Urine Opiates Screen Negative (Ccfuty=599) ng/mL Acetaminophen (10-20) mcg/mL Ur Barbiturates Screen Negative (Gztlbw=885) ng/mL Ur Phencyclidine Scrn Negative (Cutoff=25) ng/mL Ur Amphetamines Screen Negative (Vaqgzz=4293) ng/mL U Benzodiazepines Scrn Positive H (Kryrqf=017) ng/mL Urine Cocaine Screen Negative (Cutoff= 300) ng/mL U Marijuana (THC) Screen Negative (Cutoff = 50) ng/mL Ethyl Alcohol (Less than 10) mg/dL 02/05/18 Range/Units 09:58 WBC (4.3-11.1) K/mcL RBC (4.19-5.50) M/mcL Hgb (12.9-16.9) g/dL Hct (37.5-50.1) % MCV (83.0-100.0) fL MCH (28.0-33.3) pg MCHC (31.6-35.5) g/dL RDW (11.5-14.5) % Plt Count (140-400) K/mcL MPV (9.4-12.4) fL Immature Gran % (0-4) % Seg Neutrophils % % Lymphocytes % % Monocytes % % Eosinophils % % Basophils % % Neutrophils # (1.6-8.9) K/mcL Lymphocytes # (0.6-4.6) K/mcL Monocytes # (0.0-1.3) K/mcL Eosinophils # (0.0-0.6) K/mcL Basophils # (0.0-0.2) K/mcL Sodium 137 (136-145) mEq/L Potassium 4.0 (3.5-5.1) mEq/L Chloride 103 (98-107) mEq/L Carbon Dioxide 27 (23-29) mEq/L BUN 6 (6-20) mg/dL Creatinine 0.65 L (0.70-1.30) mg/dL Est GFR ( Amer) > 60 (> 60) Est GFR (Non-Af Amer) > 60 (> 60) BUN/Creatinine Ratio 9 (6-26) Glucose 150 H (70-105) mg/dL Calculated Osmolality 284 (280-300) Calcium 9.8 (8.6-10.3) mg/dL Urine Color (Yellow) Urine Clarity (Clear) Urine pH (5.0-8.0) pH Units Ur Specific [place] (1.010-1.025) Urine Protein (Neg-Trace) mg/dL Urine Glucose (UA) (Normal) mg/dL Urine Ketones (Negative) mg/dL Urine Blood (Negative) Urine Nitrite (Negative) Urine Bilirubin (Negative) Urine Urobilinogen (Normal) mg/dL Ur Leukocyte Esterase (Negative) Salicylates < 2.5 L (15.0-30.0) mg/dL Urine Opiates Screen (Gtidul=961) ng/mL Acetaminophen < 10 L (10-20) mcg/mL Ur Barbiturates Screen (Brxree=947) ng/mL Ur Phencyclidine Scrn (Cutoff=25) ng/mL Ur Amphetamines Screen (Vkbrut=8917) ng/mL U Benzodiazepines Scrn (Xyfdyd=287) ng/mL Urine Cocaine Screen (Cutoff= 300) ng/mL U Marijuana (THC) Screen (Cutoff = 50) ng/mL Ethyl Alcohol < 10 (Less than 10) mg/dL Psychiatric Medical Clearance - Medical Clearance Checklist Medical History: Suicidal ideation (Acute) Chronic schizophrenia (Acute) Substance-induced psychotic disorder with delusions (Acute) No Social History Section defined Current Vitals: Last Vital Signs Temp 98.8 F 02/05/18 20:36 Pulse 78 02/05/18 20:36 Resp 18 02/05/18 20:36 BP 124/74 02/05/18 20:36 Pulse Ox 97 02/05/18 09:43 Psychiatric Lab Panel: Drug Levels and Toxicity 02/05/18 02/05/18 09:47 09:58 Urine Opiates Screen Negative Acetaminophen < 10 L Ur Barbiturates Screen Negative Ur Phencyclidine Scrn Negative Ur Amphetamines Screen Negative U Benzodiazepines Scrn Positive H Urine Cocaine Screen Negative U Marijuana (THC) Screen Negative Ethyl Alcohol < 10 Abnormal Labs: Abnormal lab results WBC 11.3 K/mcL (4.3-11.1) H 02/05/18 09:58 Creatinine 0.65 mg/dL (0.70-1.30) L 02/05/18 09:58 Glucose 150 mg/dL (70-105) H 02/05/18 09:58 Salicylates < 2.5 mg/dL (15.0-30.0) L 02/05/18 09:58 Acetaminophen < 10 mcg/mL (10-20) L 02/05/18 09:58 U Benzodiazepines Scrn Positive ng/mL (Kqewiy=084) H 02/05/18 09:47 Statement of Medical Clearance: I have evaluated the patient, reviewed diagnostic information, and certify that the patient's medical condition is sufficiently stable that transfer to the psychiatric unit does not pose a significant risk of deterioration.
[2018-02-05 10:00] LABS: Bilirubin,Urine Negative (Negative); Blood,Urine Negative (Negative); Clarity,Urine Clear (Clear); Color,Urine Yellow (Yellow); Glucose,Urine (UA) Normal (Normal); Ketones,Urine Negative (Negative); Leukocyte Esterase,Urine Negative (Negative); Nitrite,Urine Negative (Negative); PH,Urine 6.5 pH Units (5.0-8.0); Protein,Urine Negative (Neg-Trace); Urobilinogen,Urine Normal (Normal)
[2018-02-05 10:10] LABS: Basophils % 0.3 %; Eosinophils % 0.3 %; Hematocrit 45.6 % (37.5-50.1); Hemoglobin 15.4 g/dL (12.9-16.9); Immature Granulocytes % 0.2 % (0-4); Lymphocytes # 2.2 K/mcL (0.6-4.6); Lymphocytes % 19.2 %; Mean Corpuscular HGB Conc 33.8 g/dL (31.6-35.5); Mean Corpuscular Hemoglobin 29.5 pg (28.0-33.3); Mean Corpuscular Volume 87.4 fL (83.0-100.0); Mean Platelet Volume 10.8 fL (9.4-12.4); Monocytes # 0.7 K/mcL (0.0-1.3); Monocytes % 5.7 %; Neutrophils # 8.4 K/mcL (1.6-8.9); Platelet Count 244 K/mcL (140-400); Red Blood Count 5.22 M/mcL (4.19-5.50); Red Cell Distribution Width 13.4 % (11.5-14.5); Segmented Neutrophils % 74.3 %
--- NOTE | 2018-02-05 10:23 | Emergency Department Note ---
Disposition Clinical Impression: Suicidal ideation Disposition: Admitted As Inpatient Condition: Good General Adult HPI - General Chief complaint: ED Psychiatric Symptoms Stated complaint: SI Source: patient, family Limitations: no limitations - History of Present Illness Pain Scale: 5 - Related Data Previous Rx's Medication Instructions Recorded Nicotine Patch [Nicoderm] 21 mg TD DAILY #14 patch.td24 01/17/17 OLANZapine [Zyprexa Zydis] 10 mg PO BID #14 tab.rapdis 01/17/17 traZODone [TraZODone] 50 mg PO HS PRN #14 tablet 01/17/17 Allergies Allergy/AdvReac Type Severity Reaction Status Date / Time No Known Allergies Allergy Verified 01/11/17 20:31 Past Medical History - Past Medical History Medical history: Reports: hyperlipidemia, hypertension Surgical history: Reports: appendectomy, cholecystectomy, sinus surgery Psychiatric history: Reports: bipolar, schizophrenia - Social History Smoking Status: Current every day smoker Smokeless Tobacco Status: No Alcohol use: Reports: none Drug use: Reports: opiates, prescription drug abuse, other Physical Exam - General Limitations: no limitations General appearance: alert, in no apparent distress Course Vital Signs Temperature 98.1 F 02/05/18 09:35 Pulse Rate 94 02/05/18 09:35 Respiratory Rate 18 02/05/18 09:35 Blood Pressure 169/95 02/05/18 09:35 O2 Sat by Pulse Oximetry 97 02/05/18 09:35 Temperature 98.1 F 02/05/18 09:43 Pulse Rate 94 02/05/18 09:43 Respiratory Rate 18 02/05/18 09:43 Blood Pressure 169/95 02/05/18 09:43 O2 Sat by Pulse Oximetry 97 02/05/18 09:43 Oxygen Delivery Oxygen Delivery Room Air Medical Decision Making - Lab Data Result diagrams: 02/05/18 09:58 02/05/18 09:58 Lab Results 02/05/18 02/05/18 02/05/18 Range/Units 09:47 09:47 09:58 WBC 11.3 H (4.3-11.1) K/mcL RBC 5.22 (4.19-5.50) M/mcL Hgb 15.4 (12.9-16.9) g/dL Hct 45.6 (37.5-50.1) % MCV 87.4 (83.0-100.0) fL MCH 29.5 (28.0-33.3) pg MCHC 33.8 (31.6-35.5) g/dL RDW 13.4 (11.5-14.5) % Plt Count 244 (140-400) K/mcL MPV 10.8 (9.4-12.4) fL Immature Gran % 0.2 (0-4) % Seg Neutrophils % 74.3 % Lymphocytes % 19.2 % Monocytes % 5.7 % Eosinophils % 0.3 % Basophils % 0.3 % Neutrophils # 8.4 (1.6-8.9) K/mcL Lymphocytes # 2.2 (0.6-4.6) K/mcL Monocytes # 0.7 (0.0-1.3) K/mcL Eosinophils # 0.0 (0.0-0.6) K/mcL Basophils # 0.0 (0.0-0.2) K/mcL Sodium (136-145) mEq/L Potassium (3.5-5.1) mEq/L Chloride (98-107) mEq/L Carbon Dioxide (23-29) mEq/L BUN (6-20) mg/dL Creatinine (0.70-1.30) mg/dL Est GFR ( Amer) (> 60) Est GFR (Non-Af Amer) (> 60) BUN/Creatinine Ratio (6-26) Glucose (70-105) mg/dL Calculated Osmolality (280-300) Calcium (8.6-10.3) mg/dL Urine Color Yellow (Yellow) Urine Clarity Clear (Clear) Urine pH 6.5 (5.0-8.0) pH Units Ur Specific [place] 1.010 (1.010-1.025) Urine Protein Negative (Neg-Trace) mg/dL Urine Glucose (UA) Normal (Normal) mg/dL Urine Ketones Negative (Negative) mg/dL Urine Blood Negative (Negative) Urine Nitrite Negative (Negative) Urine Bilirubin Negative (Negative) Urine Urobilinogen Normal (Normal) mg/dL Ur Leukocyte Esterase Negative (Negative) Salicylates (15.0-30.0) mg/dL Urine Opiates Screen Negative (Xevqyw=153) ng/mL Acetaminophen (10-20) mcg/mL Ur Barbiturates Screen Negative (Nylyyn=961) ng/mL Ur Phencyclidine Scrn Negative (Cutoff=25) ng/mL Ur Amphetamines Screen Negative (Kvnjje=2484) ng/mL U Benzodiazepines Scrn Positive H (Utzpzv=745) ng/mL Urine Cocaine Screen Negative (Cutoff= 300) ng/mL U Marijuana (THC) Screen Negative (Cutoff = 50) ng/mL Ethyl Alcohol (Less than 10) mg/dL 02/05/18 Range/Units 09:58 WBC (4.3-11.1) K/mcL RBC (4.19-5.50) M/mcL Hgb (12.9-16.9) g/dL Hct (37.5-50.1) % MCV (83.0-100.0) fL MCH (28.0-33.3) pg MCHC (31.6-35.5) g/dL RDW (11.5-14.5) % Plt Count (140-400) K/mcL MPV (9.4-12.4) fL Immature Gran % (0-4) % Seg Neutrophils % % Lymphocytes % % Monocytes % % Eosinophils % % Basophils % % Neutrophils # (1.6-8.9) K/mcL Lymphocytes # (0.6-4.6) K/mcL Monocytes # (0.0-1.3) K/mcL Eosinophils # (0.0-0.6) K/mcL Basophils # (0.0-0.2) K/mcL Sodium 137 (136-145) mEq/L Potassium 4.0 (3.5-5.1) mEq/L Chloride 103 (98-107) mEq/L Carbon Dioxide 27 (23-29) mEq/L BUN 6 (6-20) mg/dL Creatinine 0.65 L (0.70-1.30) mg/dL Est GFR ( Amer) > 60 (> 60) Est GFR (Non-Af Amer) > 60 (> 60) BUN/Creatinine Ratio 9 (6-26) Glucose 150 H (70-105) mg/dL Calculated Osmolality 284 (280-300) Calcium 9.8 (8.6-10.3) mg/dL Urine Color (Yellow) Urine Clarity (Clear) Urine pH (5.0-8.0) pH Units Ur Specific [place] (1.010-1.025) Urine Protein (Neg-Trace) mg/dL Urine Glucose (UA) (Normal) mg/dL Urine Ketones (Negative) mg/dL Urine Blood (Negative) Urine Nitrite (Negative) Urine Bilirubin (Negative) Urine Urobilinogen (Normal) mg/dL Ur Leukocyte Esterase (Negative) Salicylates < 2.5 L (15.0-30.0) mg/dL Urine Opiates Screen (Qtndji=482) ng/mL Acetaminophen < 10 L (10-20) mcg/mL Ur Barbiturates Screen (Slvfrm=925) ng/mL Ur Phencyclidine Scrn (Cutoff=25) ng/mL Ur Amphetamines Screen (Dliteh=8596) ng/mL U Benzodiazepines Scrn (Ttqfnw=978) ng/mL Urine Cocaine Screen (Cutoff= 300) ng/mL U Marijuana (THC) Screen (Cutoff = 50) ng/mL Ethyl Alcohol < 10 (Less than 10) mg/dL Attestation Statement - Attestation Attestation: I examined this patient and my medical decision-making was reviewed with the [facility] OPERATOR/PA/Advanced Practice Nurse/Resident Physician. I agree with the documented findings, disposition and treatment plan as described except to the extent set forth below. The patient's presents with suicidal ideation and he does have a planned to stab himself and he has not tried end his life in the past but has had suicidal ideation in the past. Has had hallucinations in his history however is not having any hallucinations at this time. Is resting comfortably in the cart. Is here with 2 friends. Evaluation is in progress. [id number]
[2018-02-05 10:38] LABS: BUN/Creatinine Ratio 9 (6-26); Blood Urea Nitrogen 6 mg/dL (6-20); Calcium 9.8 mg/dL (8.6-10.3); Carbon Dioxide 27 mEq/L (23-29); Chloride 103 mEq/L (98-107); Glucose 150 mg/dL (70-105); Osmolality,Calculated 284 (280-300); Sodium 137 mEq/L (136-145); eGFR For African Americans > 60 (> 60); eGFR For Non-African Americans > 60 (> 60)
[2018-02-05 10:41] LABS: Amphetamine Screen,Urine Negative ng/mL (Cutoff=1000); Barbiturate Screen,Urine Negative ng/mL (Cutoff=200); Benzodiazepines Screen,Urine Positive ng/mL (Cutoff=200); Cannabinoid Screen,Urine Negative ng/mL (Cutoff = 50); Cocaine Screen,Urine Negative ng/mL (Cutoff= 300); Opiate Screen,Urine Negative ng/mL (Cutoff=300); Phencyclidine Screen,Urine Negative ng/mL (Cutoff=25)
[2018-02-05 14:34] LABS: Acetaminophen < 10 mcg/mL (10-20)
[2018-02-05 14:36] LABS: Ethanol < 10 mg/dL (Less than 10); Salicylate < 2.5 mg/dL (15.0-30.0)
[2018-02-05] MEDS ORDERED: Haloperidol Lactate 5 MG/ML VIAL IM PRN (16:34)
[2018-02-05] MEDS ORDERED: *HR* LORazepam 1 MG TABLET PO PRN (16:34)
[2018-02-05] MEDS ORDERED: Mag Hydrox/Al Hydrox/Simeth 30 ML UDC PO PRN (16:34)
[2018-02-05] MEDS ORDERED: *HR* LORazepam 2 MG/ML VIAL IM PRN (16:34)
[2018-02-05] MEDS ORDERED: MOM Conc 10 ML UD.LIQ PO PRN (16:34)
[2018-02-05] MEDS: Nicotine 21 MG PATCH.TD24 TD SCH (17:02)
[2018-02-05] MEDS: hydrOXYzine pamoate 25 MG CAPSULE PO PRN (20:57)
[2018-02-05] MEDS: Ibuprofen 400 MG TABLET PO PRN (20:57)
[2018-02-06] MEDS: Nicotine 21 MG PATCH.TD24 TD SCH (08:29)
[2018-02-06] MEDS ORDERED: traZODone 50 MG TABLET PO PRN (09:21)
[2018-02-06] MEDS: hydrOXYzine pamoate 25 MG CAPSULE PO PRN (10:19)
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
[2018-02-06] MEDS: Ibuprofen 400 MG TABLET PO PRN (17:24)
[2018-02-07] MEDS: Nicotine 21 MG PATCH.TD24 TD SCH (09:00)
[2018-02-07] MEDS: risperiDONE 0.25 MG TABLET PO SCH (09:03)
--- NOTE | 2018-02-07 11:01 | Psychiatry Progress Note ---
Date of Encounter: 02/07/18 Time of Encounter: 10:30 Subjective Interval history: Patient seen today , case d/w staff , he has been isolative, depress and states i am having craving for cigarretes , he has been given nicotine patch. he slept off and on , emelia suicidal ideation ,remains dysphoric, he is attending some groups, remains with drawn and hallucinations better, remains paranoid states i feel safe in here. at present will increase celexa 20 mg and denies side effects. continue monitoring. Review of Systems Psychiatric: Reports: depression, anxiety, suicidal ideation, difficulty concentrating, hopelessness, irritability Results - Vital Signs Vital Signs: Temp Pulse Resp BP Pulse Ox 98.4 F 79 18 123/81 97 02/07/18 08:36 02/07/18 08:36 02/07/18 08:36 02/07/18 08:36 02/05/18 09:43 Assessment and Plan (1) Suicidal ideation Current visit: Yes Status: Acute Plan: Continue hospitalization, Close observation, Suicide Precautions per unit protocol, Encourage participation in unit milieu, Group Therapy, Monitor sleep, Monitor appetite, Family/Supportive other meeting Risks, benefits, side effects, alternatives discussed w/pt: Yes Patient agreeable to treatment: Yes (2) Chronic schizophrenia Current visit: No Status: Acute Plan: Continue hospitalization, Close observation, Suicide Precautions per unit protocol, Encourage participation in unit milieu, Group Therapy, Monitor sleep, Monitor appetite, Family/Supportive other meeting Risks, benefits, side effects, alternatives discussed w/pt: Yes Patient agreeable to treatment: Yes (3) Learning difficulty Current visit: Yes Status: Chronic Risks, benefits, side effects, alternatives discussed w/pt: Yes Patient agreeable to treatment: Yes Consult Discharge Plan - Plan Referrals: NONE,PCP [Primary Care Provider] - Psychiatry Exam - Constitutional Vitals: Temp Pulse Resp BP Pulse Ox 98.4 F 79 18 123/81 97 02/07/18 08:36 02/07/18 08:36 02/07/18 08:36 02/07/18 08:36 02/05/18 09:43 General appearance: age & developmentally appropriate - Musculoskeletal Gait: normal Station: relaxed Strength & Tone: normal for patient - Psychiatric Patient Orientation: Yes Person, Yes Time, Yes Place Level of alertness: Alert Behavior: withdrawn Psychomotor activity: Slowed Eye Contact: Maintains Eye Contact Mood Description: Depressed, Anxious Affect description: dysphoric Speech Volume: Soft/Quiet Speech pattern: coherent, slowed Language & Vocabulary: consistent with education Thought Process: Linear, Goal Oriented Thought Content: Yes Guilt Perceptual Disturbances: Yes Auditory hallucinations Attention Span Ability: Unable to Sustain Attention Memory Description: Grossly Intact Patient Reliability: Reliable Historian Intelligence Estimate: Average Judgment: Limited Insight: Partial
[2018-02-08] MEDS: risperiDONE 0.25 MG TABLET PO SCH (08:40)
[2018-02-08] MEDS: Nicotine 21 MG PATCH.TD24 TD SCH (08:40)
--- NOTE | 2018-02-08 09:57 | Psychiatry Progress Note ---
Date of Encounter: 02/08/18 Time of Encounter: 09:20 Subjective Interval history: Patient seen today , case d/w staff . patient states did not sleep after 1 am and asked for medication to sleep and then at 5 am dozed off for short while, is tired, anxious and depress. hallucinations are much better and looks very dysphoric and anxious and i was having anxiety attack last night. states he was taking 1/4 pill of suboxone , states he went to dr to get it once but did not go back. he is anxious and wants some thing for it, denies suicidal ideation but remains with feelings of worthlessness and hopelessness. will increase celexa, change risperdal to 1 mg hs and add trazadone 150 mghs, also propranolol 10 mg for anxiety. side effects denies any [id number] Review of Systems Psychiatric: Reports: depression, anxiety, suicidal ideation, difficulty concentrating, hopelessness, irritability Results - Vital Signs Vital Signs: Temp Pulse Resp BP Pulse Ox 97.9 F 72 18 151/88 97 02/07/18 20:38 02/07/18 20:38 02/07/18 20:38 02/07/18 20:38 02/05/18 09:43 Assessment and Plan (1) Suicidal ideation Current visit: Yes Status: Acute Plan: Continue hospitalization, Close observation, Suicide Precautions per unit protocol, Encourage participation in unit milieu, Group Therapy, Monitor sleep, Monitor appetite, Family/Supportive other meeting Risks, benefits, side effects, alternatives discussed w/pt: Yes Patient agreeable to treatment: Yes (2) Chronic schizophrenia Current visit: No Status: Acute Plan: Continue hospitalization, Close observation, Suicide Precautions per unit protocol, Encourage participation in unit milieu, Group Therapy, Monitor sleep, Monitor appetite, Family/Supportive other meeting Risks, benefits, side effects, alternatives discussed w/pt: Yes Patient agreeable to treatment: Yes (3) Learning difficulty Current visit: Yes Status: Chronic Risks, benefits, side effects, alternatives discussed w/pt: Yes Patient agreeable to treatment: Yes Consult Discharge Plan - Plan Referrals: NONE,PCP [Primary Care Provider] - Psychiatry Exam - Constitutional Vitals: Temp Pulse Resp BP Pulse Ox 97.9 F 72 18 151/88 97 02/07/18 20:38 02/07/18 20:38 02/07/18 20:38 02/07/18 20:38 02/05/18 09:43 General appearance: age & developmentally appropriate, well-groomed, well- nourished - Musculoskeletal Gait: slow Station: other Strength & Tone: normal for patient - Psychiatric Patient Orientation: Yes Person, Yes Time, Yes Place Level of alertness: Alert Behavior: nervous, anxious Psychomotor activity: Normal Eye Contact: Maintains Eye Contact Mood Description: Depressed, Anxious Affect description: dysphoric, anxious Speech Volume: Soft/Quiet Speech pattern: coherent, slowed Language & Vocabulary: consistent with education Thought Process: Slowed Thinking Thought Content: Yes Guilt Perceptual Disturbances: Yes Auditory hallucinations Attention Span Ability: Unable to Sustain Attention Memory Description: Grossly Intact Patient Reliability: Reliable Historian Fund of knowledge: Yes abstraction ability, Yes aware of current events Intelligence Estimate: Average Judgment: Limited Insight: Partial
[2018-02-08] MEDS ORDERED: risperiDONE 1 MG TABLET PO SCH (21:00)
[2018-02-08] MEDS ORDERED: traZODone 50 MG TABLET PO SCH (21:00)
[2018-02-09] MEDS: Nicotine 21 MG PATCH.TD24 TD SCH (08:32)
[2018-02-09 09:31] VITALS: BP 126/76
--- NOTE | 2018-02-09 11:25 | Discharge Summary ---
Date of Encounter: 02/09/18 Time of Encounter: 10:00 Diagnosis - Discharge Diagnosis (1) Chronic schizophrenia Priority: Primary Status: Acute (2) Anxiety Priority: Secondary Status: Acute (3) Learning difficulty Priority: Secondary Status: Chronic Medications - Discharge Medications Prescriptions: Citalopram [CeleXA] 20 mg PO DAILY #30 tablet Propranolol [Inderal] 10 mg PO HS #30 tablet risperiDONE [RisperDAL] 1 mg PO HS #30 tablet Nicotine Patch [Nicoderm] 21 mg TD DAILY #14 patch.[id number] 01/17/17 [Rx] traZODone [TraZODone] 50 mg PO HS PRN #14 tablet 01/17/17 [Rx] Citalopram [CeleXA] 20 mg PO DAILY #30 tablet 02/09/18 [Rx] Propranolol [Inderal] 10 mg PO HS #30 tablet 02/09/18 [Rx] risperiDONE [RisperDAL] 1 mg PO HS #30 tablet 02/09/18 [Rx] 3 Allergy/AdvReac Type Severity Reaction Status Date / Time No Known Allergies Allergy Verified 01/11/17 20:31 Provider Date of admission: 02/05/18 16:15 Primary care physician: PCP NONE Consults: 02/05/18 17:49 Consult to Pastoral Services [CONS] Routine Comment: Discharging clinician: Gaby Duran Psychiatry Exam - Constitutional Vitals: Temp Pulse Resp BP Pulse Ox 97.4 F L 67 16 126/76 97 02/09/18 09:00 02/09/18 09:00 02/09/18 09:00 02/09/18 09:00 02/05/18 09:43 General appearance: age & developmentally appropriate, well-groomed, well- nourished - Musculoskeletal Gait: normal Station: relaxed Strength & Tone: normal for patient - Psychiatric Patient Orientation: Yes Person, Yes Time, Yes Place Level of alertness: Alert Behavior: calm, cooperative Psychomotor activity: Normal Eye Contact: Minimal Contact Mood Description: Euthymic/stable Affect description: congruent with mood Speech Volume: Normal Speech pattern: normal rate, normal rhythm, normal tone Language & Vocabulary: consistent with education Thought Process: Linear, Goal Oriented, [place] Thought Content: No Suicidal ideation, No Homicidal ideation, No Overt delusions Perceptual Disturbances: No Auditory hallucinations, No Visual hallucinations Attention Span Ability: Capable of Focused Attention Memory Description: Grossly Intact Patient Reliability: Reliable Historian Fund of knowledge: Yes abstraction ability Intelligence Estimate: Average Judgment: Limited Insight: Partial Hospital Course Hospital course: Mr. St is a 47 year old male with a history of schizophrenia, learning disability, anxiety symptoms. He presented to the hospital with depression and thoughts of wanting to hurt himself with a plan to stab himself in the neck. Patient was admitted to for psychiatric stabilization. He was incorporated into the therapeutic milieu and offer group and individual as well as recreational therapies. He was also offered psychoeducational materials and supportive therapy. He was placed on suicide precautions and close observation per unit protocol. Patient states that throughout the course of his hospitalization he is started to notice improvement in his mood. He believes the Celexa is helping with his mood. He also has taken the Risperdal for improvement in his hallucinations and paranoia which he states have resolved. Overall he feels much better. He was not sleeping well until propanolol was started at bedtime last night. He was able to get at least 5 hours of solid sleep last night and states he feels rested this morning. Case discussed with treatment team and patient has made noticeable improvement throughout his stay. He is willing to continue to take his medications and follow-up with outpatient providers for further treatment. He will be discharged home in stable condition. At the time of discharge patient denied suicidal or homicidal ideation, intent, or plan. He denied auditory or visual hallucinations and was reality based, organized and did not appear to be responding to internal stimuli. Does patient wish to continue nicotine replacement upon disc: Yes - Time Spent with Patient Total time spent providing and/or coordinating discharge services: Greater than 30 minutes Assessment and Plan - Patient/Caregiver Discharge Instructions Activity: resume usual activities as tolerated Diet: regular diet - Follow up Plan Follow up with: Ekaterina Isbell [Outside] (The above appointment is with Kira Iyer for outpatient mental health and substance abuse counseling services.) Zari Freitas [Advanced Practice Nurse] - 02/10/18 10:30 am (The above appointment is with Zari Freitas CNP for primary care and medication management services. The above appointment(s) reflects first availability. You may contact the office regularly to check for cancellations that may allow you to be seen sooner.) Functional capacity at discharge: independent ambulation Overall status at discharge: Stable Disposition: Home, Self-Care Quality - Multiple Antipsychotics Patient discharged on 2 or more antipsychotic medications: No Procedures - Procedures Procedures: Medication Management, Crisis Stabilization, Supportive Therapy, Group Therapy, Psychoeducational Therapy
== END 2018-02-09 12:29 | disposition home or self-care (01) | DRG 750 ==
LOC: EMEROO 09:32 → 1ANU 16:15
PROVIDERS: ADMIT Psychiatry & Neurology Psychiatry; ATTEND Psychiatry & Neurology Psychiatry